=== PATIENT | female | born 1945 | race Caucasian/White ===

== ENCOUNTER 2021-06-10 16:22 | Emergency (ER) | payer MEDICARE ==
[~2021-06-10] VITALS: Ht 167.6 cm; Wt 67.7 kg
[~2021-06-10 16:22] MED LIST: AMIO200T61 PO; APIX5TAB3 PO; CEFD300C3 PO; FURO-149 PO; LISI5TAB22 PO; LOP25T PO; POTA-207 PO
[2021-06-10 17:39] VITALS: BP 111/67
== END 2021-06-11 02:51 | disposition left against medical advice (07) ==
LOC: ER 16:23
DX: Z53.21 Procedure and treatment not carried out due to patient leaving prior to being seen by health care provider (principal)
CPT/HCPCS: 71045

== ENCOUNTER 2021-07-17 19:16 | Inpatient (IN) | payer MEDICARE, OTHER ==
[~2021-07-17] VITALS: Ht 167.6 cm; Wt 77.5 kg
[~2021-07-17 19:16] MED LIST changes: -AMIO200T61 PO; +AMIO200T67 PO; -CEFD300C3 PO; -FURO-149 PO; +FURO40TA4 PO; +LISI2.5T14 PO; -LISI5TAB22 PO; -POTA-207 PO
[2021-07-17 20:20] LABS: BASOPHILS # (AUTO) 0.1 X10'3 (0-0.2); BASOPHILS % (AUTO) 0.2 % (0-1); EOSINOPHILS % (AUTO) 0.2 % (0-6); HEMATOCRIT 26.2 % (35.0-45.0); HEMOGLOBIN 8.3 g/dl (12.0-16.0); LYMPHOCYTES # (AUTO) 1.3 X10'3 (1.1-4.8); LYMPHOCYTES % (AUTO) 4.4 % (21-51); MEAN CORPUSCULAR HEMOGLOBIN 24.5 PG (27.0-31.0); MEAN CORPUSCULAR HGB CONC 31.5 g/dL (33.0-36.5); MEAN CORPUSCULAR VOLUME 77.7 FL (78-98); MEAN PLATELET VOLUME 6.8 FL (7.4-10.4); MONOCYTES # (AUTO) 1.6 X10'3 (0-0.9); MONOCYTES % (AUTO) 5.4 % (2-12); NEUTROPHILS # (AUTO) 26.1 X10'3 (1.8-7.7); NEUTROPHILS % (AUTO) 89.8 % (42-75); PLATELET COUNT 331 X10'3 (140-440); RED BLOOD COUNT 3.37 X10'6 (4.20-5.60); RED CELL DISTRIBUTION WIDTH 20.8 % (11.5-14.5)
[2021-07-17 20:26] LABS: WHITE BLOOD COUNT 29.1 X10'3 (4.5-11.0)
[2021-07-17 20:33] LABS: APTT 31 SECONDS (22-32)
[2021-07-17 20:57] LABS: ANISOCYTOSIS 3+; MICROCYTOSIS 1+; PLATELET ESTIMATE NORMAL; POLYCHROMASIA FEW; STOMATOCYTES FEW; TOTAL CELLS COUNTED 100
[2021-07-17 22:04] LABS: ALANINE AMINOTRANSFERASE 30 U/L (12-78); ALBUMIN 1.5 G/DL (3.4-5.0); ALBUMIN/GLOBULIN RATIO 0.3 (1.1-1.5); ALKALINE PHOSPHATASE 139 IU/L (46-116); ANION GAP 6 (8-16); ASPARTATE AMINO TRANSFERASE 26 U/L (10-37); BILIRUBIN,TOTAL 0.3 MG/DL (0.1-1.0); BLOOD UREA NITROGEN 33 MG/DL (7-18); BUN/CREATININE RATIO 26.6 (6.6-38.0); CHLORIDE 102 MMOL/L (99-107); CREATININE 1.24 MG/DL (0.40-0.90); GLUCOSE 122 MG/DL (70-104); POTASSIUM 4.2 MMOL/L (3.5-5.1); SODIUM 141 MMOL/L (135-145); TOTAL PROTEIN 7.1 G/DL (6.4-8.2); eGFR 42 ML/MIN
[2021-07-17] MEDS ORDERED: diltiazem 5mg/ml 5ml inj. IV ONE (23:15)
[2021-07-17] MEDS ORDERED: diltiazem-NS 100mg/100ml 100 ML IV PRN (23:15)
[2021-07-17 23:27] LABS: MAGNESIUM 2.3 MG/DL (1.5-2.4)
[2021-07-18] MEDS ORDERED: iohexol 300mg/ml 100ml inj. ONE (01:33)
[2021-07-18] MEDS ORDERED: CefTRIAXone/D5W-Rocephin 1gm 50 ML IV ONE (01:45)
[2021-07-18] MEDS ORDERED: ondansetron/PF 4mg/2ml inj IV PRN (02:55)
[2021-07-18] MEDS ORDERED: potassium Cl 20 mEq SR tablet PO PRN ×2 (02:55)
[2021-07-18] MEDS ORDERED: magnesium 2GM in 50ml NS 50 ML IV PRN (02:55)
[2021-07-18] MEDS ORDERED: magnesium 4gm in 100ml NS 100 ML IV PRN (02:55)
[2021-07-18] MEDS ORDERED: mag hydrox/Alum hydrox/simeth 30ml oral suspension PO PRN (02:55)
[2021-07-18] MEDS ORDERED: potassium CL 10mEq/100ml bag 100 ML IV PRN (02:55)
[2021-07-18] MEDS ORDERED: magnesium hydroxide 30ml (MOM) UD suspension PO PRN (02:55)
[2021-07-18] MEDS ORDERED: magnesium Cl slow-release 64mg tablet PO PRN (02:55)
[2021-07-18] MEDS ORDERED: AMIO200T27 PO (03:12)
[2021-07-18] MEDS ORDERED: LISI2.5T14 PO (03:12)
--- NOTE | 2021-07-18 04:00 | NUR ---
Attempted to call report to surgical. Waiting callback.
[2021-07-18] MEDS: acetaminophen 325mg tablet PO PRN ×2 (06:05→17:48)
[2021-07-18] MEDS: amiodarone 200mg tablet PO SCH ×2 (07:15→19:51)
[2021-07-18] MEDS: furosemide 40mg tablet PO SCH (07:15)
[2021-07-18] MEDS: metoprolol tartrate 25mg tablet PO SCH ×2 (07:15→19:53)
[2021-07-18] MEDS: lisinopril 2.5mg tablet PO SCH (07:15)
[2021-07-18] MEDS: docusate sod 100mg capsule PO SCH ×2 (07:15→19:51)
[2021-07-18] MEDS: K and/or MAG REPLACEMENT MC SCH ×2 (07:57→19:47)
--- NOTE | 2021-07-18 12:39 | NUR ---
PAGER ID: [phone] MESSAGE: Re: Cailin Finney. Room: 312. Pt's daughter would like an update when you get a chance. Whitney -Dr. Jenkins paged concerning update on Pt's diagnosis
[2021-07-18] MEDS ORDERED: ondansetron 4mg rapidly disintigrating tab PO PRN (14:05)
[2021-07-18 15:00] VITALS: BP 95/56
--- NOTE | 2021-07-18 15:40 | NUR ---
PAGER ID: [phone] MESSAGE: Re: MusellaCailin. room: 312. Pt complaining of chronic back pain. Can we order [place] 5 prn [id number]? -[facility] #[id number] -Dr. cutler paged concerning pain medication.
--- NOTE | 2021-07-18 16:07 | NUR ---
PAGER ID: [phone] MESSAGE: Re: Rene Finney. Room: 312. Pt's daughter would like to talk to you concerning her diagnosis. Whitney -[facility] #[id number] -Dr. Jenkins paged concerning update for Pt's daughter
[2021-07-18 18:00] VITALS: BP 81/56
--- NOTE | 2021-07-18 18:05 | NUR ---
Problems reprioritized. Patient report given, questions answered & plan of care reviewed with Asa URBINA.
[2021-07-18] MEDS: HYDROcodone/acetaminophen 5mg/325mg tablet PO PRN (19:52)
--- NOTE | 2021-07-18 21:52 | NUR ---
Pt is a 75 yo female, admitted 07/18/2021, day zero of admission, Full code, allergies to Ativan, No isolation , no restraints. 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 The patient has had good temporary relief from 2 thoracenteses. A diagnosis of malignancy has not been established, however, her CT now shows a new breast mass and a large R upper mediastinal mass. Currently, pt is in ACCE unit, Afebrile, C/o pain 7/10, called and received order for [place] 5 mg. Reassessment of pain is 0/10. Pt is awake alert oriented times 4, moves all extremities, follows all commands, stand-by asst with BSC. Pt on Bedside monitor. HR 110-130 AF, on PO Amiodarone, Held PO Lopressor due to Low BP of 90/54. Weak pulses, notable generalized edema BLUE. No IVF, R & L #20, f/p. RR 16, PO 96% O2 2 L NC, clear diminished, equal symmetrical, non labored. Hypoactive bowel sounds, soft non tender, rounded obese belly. Cardiac diet well tolerated. Voids freely via BSC with stand-by asst. skin intact, fragile, friable. Call light with in reach, pr instructed to call for asst when she wants to get up out of bed. Pt states she understands and agrees with assessment. Pt remains safe, continue to monitor. Upon admission pt stated she wanted to be a DNR, after further examination and discussion pt decided to change her code status to FULL CODE. Called and notified Dr Robles and he placed order to change code status to FULL CODE.
[2021-07-18 22:00] VITALS: BP 107/60
[2021-07-19] VITALS (7 sets, daily range): BP systolic 91–115; BP diastolic 49–63
[2021-07-19] MEDS: HYDROcodone/acetaminophen 5mg/325mg tablet PO PRN ×3 (01:49→20:35)
--- NOTE | 2021-07-19 06:53 | NUR ---
Patient in room MED 312. I have received report from CIARA BRICE and had the opportunity to ask questions and assume patient care.
[2021-07-19 06:58] LABS: BASOPHILS % (AUTO) 0.1 % (0-1); EOSINOPHILS # (AUTO) 0.1 X10'3 (0-0.9); EOSINOPHILS % (AUTO) 0.3 % (0-6); HEMATOCRIT 24.1 % (35.0-45.0); HEMOGLOBIN 7.6 g/dl (12.0-16.0); LYMPHOCYTES # (AUTO) 0.9 X10'3 (1.1-4.8); LYMPHOCYTES % (AUTO) 3.3 % (21-51); MEAN CORPUSCULAR HEMOGLOBIN 24.5 PG (27.0-31.0); MEAN CORPUSCULAR HGB CONC 31.6 g/dL (33.0-36.5); MEAN CORPUSCULAR VOLUME 77.6 FL (78-98); MEAN PLATELET VOLUME 6.8 FL (7.4-10.4); MONOCYTES # (AUTO) 1.2 X10'3 (0-0.9); MONOCYTES % (AUTO) 4.6 % (2-12); NEUTROPHILS # (AUTO) 24.7 X10'3 (1.8-7.7); NEUTROPHILS % (AUTO) 91.7 % (42-75); PLATELET COUNT 298 X10'3 (140-440); RED CELL DISTRIBUTION WIDTH 20.7 % (11.5-14.5)
[2021-07-19 07:11] LABS: WHITE BLOOD COUNT 26.9 X10'3 (4.5-11.0)
--- NOTE | 2021-07-19 07:47 | NUR ---
PAGE SENT PAGER ID: [phone] MESSAGE: 312, ADAN PARKER, CRITICAL LAB, WBC -26.9. WBC 07/18/21 - .1, THANK YOU, DAVIS [phone]
[2021-07-19 07:49] LABS: ALANINE AMINOTRANSFERASE 25 U/L (12-78); ALBUMIN 1.5 G/DL (3.4-5.0); ALBUMIN/GLOBULIN RATIO 0.3 (1.1-1.5); ALKALINE PHOSPHATASE 138 IU/L (46-116); ANION GAP 8 (8-16); ASPARTATE AMINO TRANSFERASE 19 U/L (10-37); BILIRUBIN,TOTAL 0.4 MG/DL (0.1-1.0); BLOOD UREA NITROGEN 35 MG/DL (7-18); BUN/CREATININE RATIO 30.7 (6.6-38.0); CALCIUM 8.7 MG/DL (8.5-10.1); CHLORIDE 100 MMOL/L (99-107); CREATININE 1.14 MG/DL (0.40-0.90); GLUCOSE 108 MG/DL (70-104); SODIUM 141 MMOL/L (135-145); TOTAL CARBON DIOXIDE 32.8 MMOL/L (24-32); eGFR 46 ML/MIN
[2021-07-19] MEDS: lisinopril 2.5mg tablet PO SCH (08:00)
[2021-07-19] MEDS: K and/or MAG REPLACEMENT MC SCH (08:00)
[2021-07-19] MEDS: metoprolol tartrate 25mg tablet PO SCH ×2 (08:00→20:34)
[2021-07-19] MEDS: amiodarone 200mg tablet PO SCH ×2 (08:04→20:34)
[2021-07-19] MEDS: furosemide 40mg tablet PO SCH (08:04)
[2021-07-19] MEDS: docusate sod 100mg capsule PO SCH ×2 (08:04→20:34)
[2021-07-19 08:29] LABS: ANISOCYTOSIS 3+; PLATELET ESTIMATE NORMAL; TOTAL CELLS COUNTED 100
[2021-07-19 08:30] LABS: MICROCYTOSIS 1+
--- NOTE | 2021-07-19 08:34 | NUR ---
Malnutrition consult: Pt admitted w/ recurrent pleural effusions, suspected to be of malignant in origin and w/ hx of CHF per EMR. Pt unsure of wt loss per MST though current chair scale wt is 6kg greater than previous bed scale wt on 06/26. Pt has had ~50% of first 2 meals. Appears WD/WN per ED note. Documented w/ BLE 2+ edema though could be r/t hx of CHF, takes furosemide at home per EMR. At this time pt does not meet minimum criteria for malnutrition, will continue to monitor. Addendum: 07/19/21 at [address] Amended: Links added.
--- NOTE | 2021-07-19 12:01 | NUR ---
PT'S LOPRESSOR AND ZESTRIL HELD D/T LOW BP. NOTIFIED.
--- NOTE | 2021-07-19 13:29 | NUR ---
312, ELENA ARELLANO, PT'S FAMILY WOULD APPRECIATE TALKING TO A INTELLIGENCE RESEARCH SPECIALIST CONCERNING DISCHARGING DIRECTLY TO [facility]. PT L[place]ES [place] THE [place] WITH . THANK YOU, DAVIS Adams [phone]
--- NOTE | 2021-07-19 18:23 | NUR ---
Problems reprioritized. Patient report given, questions answered & plan of care reviewed with CIARA DUARTE.
[2021-07-20] VITALS (10 sets, daily range): BP systolic 88–109; BP diastolic 46–76
--- NOTE | 2021-07-20 06:11 | NUR ---
Problems reprioritized. Patient report given, questions answered & plan of care reviewed with Karen URBINA.
--- NOTE | 2021-07-20 06:16 | NUR ---
Patient in room MED 312. I have received report from CIARA DUARTE, and had the opportunity to ask questions and assume patient care.
[2021-07-20 07:42] LABS: BASOPHILS % (AUTO) 0.2 % (0-1); EOSINOPHILS # (AUTO) 0.2 X10'3 (0-0.9); EOSINOPHILS % (AUTO) 0.6 % (0-6); HEMATOCRIT 23.9 % (35.0-45.0); HEMOGLOBIN 7.4 g/dl (12.0-16.0); LYMPHOCYTES # (AUTO) 1.1 X10'3 (1.1-4.8); MEAN CORPUSCULAR HEMOGLOBIN 24.2 PG (27.0-31.0); MEAN CORPUSCULAR HGB CONC 31.1 g/dL (33.0-36.5); MEAN CORPUSCULAR VOLUME 77.8 FL (78-98); MEAN PLATELET VOLUME 6.9 FL (7.4-10.4); MONOCYTES # (AUTO) 1.4 X10'3 (0-0.9); MONOCYTES % (AUTO) 5.2 % (2-12); NEUTROPHILS # (AUTO) 24.3 X10'3 (1.8-7.7); PLATELET COUNT 263 X10'3 (140-440); RED BLOOD COUNT 3.07 X10'6 (4.20-5.60); RED CELL DISTRIBUTION WIDTH 20.6 % (11.5-14.5)
--- NOTE | 2021-07-20 07:54 | NUR ---
REPORTED CRITICAL TO PRIMARY RN
[2021-07-20] MEDS: lisinopril 2.5mg tablet PO SCH (08:00)
[2021-07-20] MEDS: metoprolol tartrate 25mg tablet PO SCH ×2 (08:00→20:00)
[2021-07-20] MEDS: furosemide 40mg tablet PO SCH (08:00)
[2021-07-20] MEDS: K and/or MAG REPLACEMENT MC SCH ×2 (08:00→20:00)
[2021-07-20 08:04] LABS: ALANINE AMINOTRANSFERASE 22 U/L (12-78); ALBUMIN 1.4 G/DL (3.4-5.0); ALBUMIN/GLOBULIN RATIO 0.3 (1.1-1.5); ALKALINE PHOSPHATASE 140 IU/L (46-116); ANION GAP 9 (8-16); ASPARTATE AMINO TRANSFERASE 19 U/L (10-37); BILIRUBIN,TOTAL 0.3 MG/DL (0.1-1.0); BLOOD UREA NITROGEN 41 MG/DL (7-18); BUN/CREATININE RATIO 39.4 (6.6-38.0); CALCIUM 8.8 MG/DL (8.5-10.1); CHLORIDE 98 MMOL/L (99-107); CREATININE 1.04 MG/DL (0.40-0.90); GLUCOSE 97 MG/DL (70-104); POTASSIUM 4.2 MMOL/L (3.5-5.1); SODIUM 138 MMOL/L (135-145); TOTAL CARBON DIOXIDE 31.5 MMOL/L (24-32); TOTAL PROTEIN 5.8 G/DL (6.4-8.2); eGFR 52 ML/MIN
[2021-07-20] MEDS: amiodarone 200mg tablet PO SCH ×2 (08:12→20:22)
[2021-07-20] MEDS: docusate sod 100mg capsule PO SCH ×2 (08:12→20:22)
--- NOTE | 2021-07-20 08:19 | NUR ---
PAGE SENT TO TO NOTIFY OF MEDS HELD - LISIX 40 MG, LOPRESSOR 25 MG, AND ZESTRIL 2.5 MG , D/T LOW BP - 92/55, HR 111. ALSO NOTIFIED OF CRITICAL LAB - WBC 27.
[2021-07-20 09:29] LABS: TOTAL CELLS COUNTED 100
[2021-07-20 09:30] LABS: ANISOCYTOSIS 3+; LARGE PLATELETS FEW; MICROCYTOSIS 1+; PLATELET ESTIMATE NORMAL
[2021-07-20] MEDS ORDERED: fentaNYL/PF 50MCG/1 ML 2ML syringe ONE (13:41)
[2021-07-20] MEDS: HYDROcodone/acetaminophen 5mg/325mg tablet PO PRN ×2 (14:44→20:22)
--- NOTE | 2021-07-20 14:57 | NUR ---
PAGE SENT PAGER ID: [phone] MESSAGE: 312, ELENA ARELLANO PT NEEDS TELE ORDER. THANK YOU. DAVIS Adams [phone]
--- NOTE | 2021-07-20 18:33 | NUR ---
Problems reprioritized. Patient report given, questions answered & plan of care reviewed with CIARA DUARTE.
[2021-07-21 02:00] VITALS: BP 95/56
[2021-07-21] MEDS: HYDROcodone/acetaminophen 5mg/325mg tablet PO PRN ×2 (04:50→19:14)
[2021-07-21 06:00] VITALS: BP 96/61
--- NOTE | 2021-07-21 06:28 | NUR ---
Problems reprioritized. Patient report given, questions answered & plan of care reviewed with PATSY URBINA.
[2021-07-21 07:04] LABS: BASOPHILS % (AUTO) 0.1 % (0-1); EOSINOPHILS # (AUTO) 0.1 X10'3 (0-0.9); EOSINOPHILS % (AUTO) 0.2 % (0-6); HEMATOCRIT 24.2 % (35.0-45.0); HEMOGLOBIN 7.5 g/dl (12.0-16.0); LYMPHOCYTES # (AUTO) 0.8 X10'3 (1.1-4.8); LYMPHOCYTES % (AUTO) 2.5 % (21-51); MEAN CORPUSCULAR HEMOGLOBIN 24.2 PG (27.0-31.0); MEAN CORPUSCULAR HGB CONC 31.1 g/dL (33.0-36.5); MEAN CORPUSCULAR VOLUME 77.9 FL (78-98); MEAN PLATELET VOLUME 6.8 FL (7.4-10.4); MONOCYTES # (AUTO) 1.7 X10'3 (0-0.9); MONOCYTES % (AUTO) 5.4 % (2-12); NEUTROPHILS # (AUTO) 28.3 X10'3 (1.8-7.7); NEUTROPHILS % (AUTO) 91.8 % (42-75); PLATELET COUNT 252 X10'3 (140-440); RED BLOOD COUNT 3.11 X10'6 (4.20-5.60); RED CELL DISTRIBUTION WIDTH 20.4 % (11.5-14.5)
[2021-07-21 07:22] LABS: WHITE BLOOD COUNT 30.9 X10'3 (4.5-11.0)
[2021-07-21 07:30] LABS: ALANINE AMINOTRANSFERASE 20 U/L (12-78); ALBUMIN 1.5 G/DL (3.4-5.0); ALBUMIN/GLOBULIN RATIO 0.3 (1.1-1.5); ALKALINE PHOSPHATASE 138 IU/L (46-116); ANION GAP 7 (8-16); ASPARTATE AMINO TRANSFERASE 20 U/L (10-37); BILIRUBIN,TOTAL 0.3 MG/DL (0.1-1.0); BLOOD UREA NITROGEN 38 MG/DL (7-18); BUN/CREATININE RATIO 38.8 (6.6-38.0); CALCIUM 9.1 MG/DL (8.5-10.1); CHLORIDE 98 MMOL/L (99-107); CREATININE 0.98 MG/DL (0.40-0.90); GLUCOSE 129 MG/DL (70-104); POTASSIUM 4.5 MMOL/L (3.5-5.1); SODIUM 137 MMOL/L (135-145); TOTAL CARBON DIOXIDE 32.5 MMOL/L (24-32); TOTAL PROTEIN 5.9 G/DL (6.4-8.2); eGFR 55 ML/MIN
[2021-07-21] MEDS: lisinopril 2.5mg tablet PO SCH (08:00)
[2021-07-21] MEDS: K and/or MAG REPLACEMENT MC SCH ×2 (08:00→19:14)
[2021-07-21 09:11] LABS: ANISOCYTOSIS 3+; MICROCYTOSIS 1+; PLATELET ESTIMATE NORMAL; TOTAL CELLS COUNTED 100
[2021-07-21] MEDS: docusate sod 100mg capsule PO SCH ×2 (09:41→19:14)
[2021-07-21] MEDS: furosemide 40mg tablet PO SCH (09:41)
[2021-07-21] MEDS: amiodarone 200mg tablet PO SCH ×2 (09:41→19:14)
[2021-07-21] MEDS: metoprolol tartrate 25mg tablet PO SCH ×2 (09:41→20:00)
[2021-07-21 11:00] VITALS: BP 92/62
--- NOTE | 2021-07-21 14:55 | NUR ---
Dr Jenkins called to have order planner contactedGail with case management aware and will call Obi Springer RN aware
[2021-07-21 15:00] VITALS: BP 96/59
[2021-07-21 20:00] VITALS: BP 97/51
[2021-07-22] VITALS (8 sets, daily range): BP systolic 90–103; BP diastolic 47–57
[2021-07-22] MEDS: HYDROcodone/acetaminophen 5mg/325mg tablet PO PRN ×3 (01:08→19:22)
[2021-07-22 06:22] LABS: BASOPHILS % (AUTO) 0.1 % (0-1); EOSINOPHILS % (AUTO) 0.1 % (0-6); HEMATOCRIT 23.5 % (35.0-45.0); HEMOGLOBIN 7.3 g/dl (12.0-16.0); LYMPHOCYTES # (AUTO) 1.1 X10'3 (1.1-4.8); LYMPHOCYTES % (AUTO) 3.2 % (21-51); MEAN CORPUSCULAR HEMOGLOBIN 24.2 PG (27.0-31.0); MEAN CORPUSCULAR VOLUME 78.1 FL (78-98); MONOCYTES # (AUTO) 1.9 X10'3 (0-0.9); MONOCYTES % (AUTO) 5.5 % (2-12); NEUTROPHILS # (AUTO) 31.1 X10'3 (1.8-7.7); NEUTROPHILS % (AUTO) 91.1 % (42-75); PLATELET COUNT 251 X10'3 (140-440); RED BLOOD COUNT 3.02 X10'6 (4.20-5.60); RED CELL DISTRIBUTION WIDTH 20.8 % (11.5-14.5)
--- NOTE | 2021-07-22 06:37 | NUR ---
Problems reprioritized. Patient report given, questions answered & plan of care reviewed with Ting URBINA.
[2021-07-22 06:41] LABS: WHITE BLOOD COUNT 34.2 X10'3 (4.5-11.0)
[2021-07-22 06:52] LABS: TOTAL CELLS COUNTED 100
[2021-07-22 06:53] LABS: ANISOCYTOSIS 3+; MICROCYTOSIS 1+; PLATELET ESTIMATE NORMAL
[2021-07-22 06:56] LABS: ALANINE AMINOTRANSFERASE 22 U/L (12-78); ALBUMIN 1.5 G/DL (3.4-5.0); ALBUMIN/GLOBULIN RATIO 0.3 (1.1-1.5); ALKALINE PHOSPHATASE 141 IU/L (46-116); ANION GAP 6 (8-16); ASPARTATE AMINO TRANSFERASE 23 U/L (10-37); BILIRUBIN,TOTAL 0.3 MG/DL (0.1-1.0); BLOOD UREA NITROGEN 35 MG/DL (7-18); BUN/CREATININE RATIO 39.8 (6.6-38.0); CALCIUM 8.8 MG/DL (8.5-10.1); CHLORIDE 96 MMOL/L (99-107); CREATININE 0.88 MG/DL (0.40-0.90); GLUCOSE 125 MG/DL (70-104); POTASSIUM 4.4 MMOL/L (3.5-5.1); SODIUM 135 MMOL/L (135-145); TOTAL CARBON DIOXIDE 32.6 MMOL/L (24-32); TOTAL PROTEIN 5.9 G/DL (6.4-8.2); eGFR 63 ML/MIN
--- NOTE | 2021-07-22 07:37 | NUR ---
MD Desouza notified of critical WBC count of 34.2 at this time
[2021-07-22] MEDS: K and/or MAG REPLACEMENT MC SCH ×2 (07:46→19:22)
[2021-07-22] MEDS: docusate sod 100mg capsule PO SCH ×2 (08:15→19:20)
[2021-07-22] MEDS: lisinopril 2.5mg tablet PO SCH (08:15)
[2021-07-22] MEDS: amiodarone 200mg tablet PO SCH ×2 (08:15→19:21)
[2021-07-22] MEDS: furosemide 40mg tablet PO SCH (08:15)
[2021-07-22] MEDS: metoprolol tartrate 25mg tablet PO SCH ×2 (08:16→19:20)
[2021-07-22] MEDS: CefTRIAXone/D5W-Rocephin 1gm 50 ML IV SCH (11:42)
--- NOTE | 2021-07-22 18:37 | NUR ---
Patient in room MED 312. I have received report from Ting URBINA and had the opportunity to ask questions and assume patient care.
[2021-07-23] VITALS (7 sets, daily range): BP systolic 83–109; BP diastolic 49–65
[2021-07-23 03:29] LABS: OCCULT BLOOD STOOL NEGATIVE (Neg)
[2021-07-23 04:33] LABS: CLARITY,URINE CLEAR (Clear); COLOR,URINE YELLOW (Yellow); GLUCOSE, URINE NEGATIVE (Neg); KETONES,URINE NEGATIVE (Neg); LEUKOCYTE ESTERASE ,URINE NEGATIVE (Neg); NITRITES, URINE NEGATIVE (Neg); OCCULT BLOOD,URINE NEGATIVE (Neg); PROTEIN,URINE NEGATIVE (Neg); UROBILINOGEN,URINE 0.2 E.U/dL (0.2-1.0)
[2021-07-23 04:40] LABS: UA COLLECTION TYPE URINAL
[2021-07-23 05:57] LABS: BASOPHILS % (AUTO) 0.1 % (0-1); EOSINOPHILS % (AUTO) 0.1 % (0-6); HEMATOCRIT 23.4 % (35.0-45.0); HEMOGLOBIN 7.3 g/dl (12.0-16.0); LYMPHOCYTES % (AUTO) 2.6 % (21-51); MEAN CORPUSCULAR HEMOGLOBIN 24.1 PG (27.0-31.0); MEAN CORPUSCULAR HGB CONC 31.1 g/dL (33.0-36.5); MEAN CORPUSCULAR VOLUME 77.7 FL (78-98); MEAN PLATELET VOLUME 7.2 FL (7.4-10.4); MONOCYTES # (AUTO) 1.9 X10'3 (0-0.9); MONOCYTES % (AUTO) 4.9 % (2-12); NEUTROPHILS # (AUTO) 36.4 X10'3 (1.8-7.7); NEUTROPHILS % (AUTO) 92.3 % (42-75); PLATELET COUNT 281 X10'3 (140-440); RED BLOOD COUNT 3.02 X10'6 (4.20-5.60); RED CELL DISTRIBUTION WIDTH 20.5 % (11.5-14.5)
[2021-07-23 06:05] LABS: WHITE BLOOD COUNT 39.5 X10'3 (4.5-11.0)
--- NOTE | 2021-07-23 06:36 | NUR ---
Problems reprioritized. Patient report given, questions answered & plan of care reviewed with Eloy URBINA.
[2021-07-23 07:07] LABS: ALANINE AMINOTRANSFERASE 21 U/L (12-78); ALBUMIN 1.3 G/DL (3.4-5.0); ALBUMIN/GLOBULIN RATIO 0.2 (1.1-1.5); ALKALINE PHOSPHATASE 134 IU/L (46-116); ANION GAP 2 (8-16); ASPARTATE AMINO TRANSFERASE 21 U/L (10-37); BILIRUBIN,TOTAL 0.3 MG/DL (0.1-1.0); BLOOD UREA NITROGEN 39 MG/DL (7-18); BUN/CREATININE RATIO 42.9 (6.6-38.0); CALCIUM 9.7 MG/DL (8.5-10.1); CHLORIDE 93 MMOL/L (99-107); CREATININE 0.91 MG/DL (0.40-0.90); GLUCOSE 114 MG/DL (70-104); POTASSIUM 4.5 MMOL/L (3.5-5.1); SODIUM 130 MMOL/L (135-145); TOTAL CARBON DIOXIDE 34.6 MMOL/L (24-32); TOTAL PROTEIN 6.9 G/DL (6.4-8.2); eGFR 60 ML/MIN
[2021-07-23 07:09] LABS: FERRITIN 3770 NG/ML (8-252)
[2021-07-23 07:18] LABS: ANISOCYTOSIS 3+; MICROCYTOSIS 1+; PLATELET ESTIMATE NORMAL; TOTAL CELLS COUNTED 100
[2021-07-23 07:19] LABS: LARGE PLATELETS FEW
[2021-07-23 07:40] LABS: IRON 12 UG/DL (49-151)
[2021-07-23 07:41] LABS: % IRON SATURATION 9 % (11-46); TOTAL IRON BINDING CAPACITY 132 UG/DL (259-388)
[2021-07-23] MEDS: metoprolol tartrate 25mg tablet PO SCH ×2 (08:00→21:28)
[2021-07-23] MEDS: lisinopril 2.5mg tablet PO SCH (08:00)
[2021-07-23] MEDS: K and/or MAG REPLACEMENT MC SCH ×2 (08:00→20:00)
[2021-07-23] MEDS: furosemide 40mg tablet PO SCH (08:35)
[2021-07-23] MEDS: CefTRIAXone/D5W-Rocephin 1gm 50 ML IV SCH (08:35)
[2021-07-23] MEDS: docusate sod 100mg capsule PO SCH ×2 (08:35→21:27)
[2021-07-23] MEDS: amiodarone 200mg tablet PO SCH ×2 (08:35→21:28)
[2021-07-23 11:39] LABS: BFSOURCE RIGHT PLEURAL FLD; PLEURAL FLUID PH 7.496 (7.63-7.65)
[2021-07-23 12:03] LABS: GLUCOSE,BODY FLUID 138 MG/DL; LDH,BODY FLUID 134 U/L
[2021-07-23 12:27] LABS: BFAPPEAR HAZY
[2021-07-23 12:28] LABS: BF MESOTHELIAL CELLS MODERATE; BF RBC COUNT 1710 /CU MM; BF WBC COUNT 470 /CU MM (0-1000); BFCOLOR YELLOW; BFVOLUME 62 ML; LYMPHOCYTES,BODY FLUID 77 %; MONOCYTES,BODY FLUID 5 %; NEUTROPHILS,BODY FLUID 18 %
[2021-07-23] MEDS: HYDROcodone/acetaminophen 5mg/325mg tablet PO PRN ×3 (13:29→20:52)
--- NOTE | 2021-07-23 14:34 | NUR ---
Initial: Pt admit dx mediastinal mass, pleural effusion, CHF and CAD per EMR. Pt currently on heart healthy diet w/ avg PO intake 40% meals and meeting approximately 58% energy needs and 56% protein needs. Possibly pending discharge today s/p thoracentesis per MD note. Recommend smoothies TIDWM to help meet nutrient needs, dietary notified. Pt s/p R thoracentesis 60mL removed 07/23, and currently on 4L HFNC per EMR. LBM 07/18 vs 07/23 per documentation, receiving routine colace. Will continue to follow closely. Recommendations: 1. Continue heart healthy diet; liberalize to regular if PO does not improve and MD approves; encourage PO 2. Smoothies TIDWM 3. Routine bowel care 4. Scaled wt this admit, weekly scaled wts thereafter Addendum: 07/23/21 at [address] Amended: Links added. Addendum: 07/23/21 at [address] JOAO has reviewed and approves of above note.
--- NOTE | 2021-07-23 18:44 | NUR ---
Patient in room MED 312. I have received report from BJ URBINA and had the opportunity to ask questions and assume patient care.
[2021-07-24 06:00] VITALS: BP 102/72
--- NOTE | 2021-07-24 06:14 | NUR ---
Problems reprioritized. Patient report given, questions answered & plan of care reviewed with GE URBINA.
[2021-07-24] MEDS: K and/or MAG REPLACEMENT MC SCH ×2 (06:51→19:17)
[2021-07-24] MEDS: lisinopril 2.5mg tablet PO SCH (08:00)
[2021-07-24] MEDS: metoprolol tartrate 25mg tablet PO SCH ×2 (08:00→19:15)
[2021-07-24] MEDS: furosemide 40mg tablet PO SCH (08:00)
[2021-07-24] MEDS: docusate sod 100mg capsule PO SCH ×2 (08:01→19:17)
[2021-07-24] MEDS: amiodarone 200mg tablet PO SCH ×2 (08:01→19:17)
[2021-07-24] MEDS: CefTRIAXone/D5W-Rocephin 1gm 50 ML IV SCH (08:01)
[2021-07-24 09:13] LABS: BASOPHILS % (AUTO) 0 % (0-1); EOSINOPHILS # (AUTO) 0.1 X10'3 (0-0.9); EOSINOPHILS % (AUTO) 0.1 % (0-6); HEMATOCRIT 23.8 % (35.0-45.0); HEMOGLOBIN 7.3 g/dl (12.0-16.0); LYMPHOCYTES % (AUTO) 2.1 % (21-51); MEAN CORPUSCULAR HEMOGLOBIN 23.7 PG (27.0-31.0); MEAN CORPUSCULAR HGB CONC 30.7 g/dL (33.0-36.5); MEAN PLATELET VOLUME 6.8 FL (7.4-10.4); MONOCYTES # (AUTO) 1.8 X10'3 (0-0.9); MONOCYTES % (AUTO) 3.6 % (2-12); NEUTROPHILS % (AUTO) 94.2 % (42-75); PLATELET COUNT 307 X10'3 (140-440); RED BLOOD COUNT 3.09 X10'6 (4.20-5.60); RED CELL DISTRIBUTION WIDTH 20.5 % (11.5-14.5)
[2021-07-24 09:16] LABS: WHITE BLOOD COUNT 48.8 X10'3 (4.5-11.0)
[2021-07-24] MEDS: HYDROcodone/acetaminophen 5mg/325mg tablet PO PRN ×4 (09:47→23:06)
[2021-07-24 10:16] LABS: ANISOCYTOSIS 3+; MICROCYTOSIS 1+; PLATELET ESTIMATE NORMAL; TOTAL CELLS COUNTED 100
[2021-07-24 10:17] LABS: HYPOCHROMASIA 1+
[2021-07-24 11:00] VITALS: BP 103/62
[2021-07-24 12:17] LABS: ALANINE AMINOTRANSFERASE 16 U/L (12-78); ALKALINE PHOSPHATASE 141 IU/L (46-116); ANION GAP 6 (8-16); ASPARTATE AMINO TRANSFERASE 21 U/L (10-37); BILIRUBIN,TOTAL 0.2 MG/DL (0.1-1.0); BLOOD UREA NITROGEN 36 MG/DL (7-18); BUN/CREATININE RATIO 40.9 (6.6-38.0); CALCIUM 9.5 MG/DL (8.5-10.1); CHLORIDE 92 MMOL/L (99-107); CREATININE 0.88 MG/DL (0.40-0.90); GLUCOSE 105 MG/DL (70-104); POTASSIUM 4.9 MMOL/L (3.5-5.1); SODIUM 129 MMOL/L (135-145); TOTAL CARBON DIOXIDE 31.3 MMOL/L (24-32); TOTAL PROTEIN 6.9 G/DL (6.4-8.2); eGFR 63 ML/MIN
[2021-07-24 12:43] LABS: ALBUMIN/GLOBULIN RATIO 0.2 (1.1-1.5)
[2021-07-24 15:00] VITALS: BP 100/63
[2021-07-24 18:00] VITALS: BP 96/63
[2021-07-24] MEDS ORDERED: diltiazem-NS 100mg/100ml 100 ML IV PRN (21:02)
[2021-07-24 22:00] VITALS: BP 85/60
[2021-07-24] MEDS ORDERED: HYDROcodone/acetaminophen 10/325mg tab PO ONE (22:50)
[2021-07-25 02:00] VITALS: BP 111/63
--- NOTE | 2021-07-25 03:00 | NUR ---
Pt is a 75 yo female, admitted 07/18/2021, day 7 of admission, Full code, allergies to Ativan, No isolation , no restraints. 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 The patient has had good temporary relief from 2 thoracenteses. A diagnosis of malignancy has not been established, however, her CT now shows a new breast mass and a large R upper mediastinal mass. Currently, pt is in ACCE unit, Afebrile, PATIENT NEED MAJOR PAIN MANAGEMENT, C/o pain 03/01, called and received order REPEAT [place] 5 mg ans also got an order for [place] 10. Pt responded to 2nd dose of [place] 5, Reassessment of pain ipt is sleeping, arousable. Pt is awake alert confused at times, moves all extremities, follows all commands. Pt on Bedside monitor. HR 140's AF, on started pt on Cardizem gtt. HR more under control, 98 AF BP 110/51. Weak pulses, notable generalized edema BLUE. No IVF, IV LAC #20. RR 16, PO 96% O2 2 L NC, clear diminished, equal symmetrical, non labored. Hypoactive bowel sounds, soft non tender, rounded obese belly. Cardiac diet not tolerated. Incontinent of urine Purewick in place. Skin intact, fragile, friable. Call light with in reach, pr instructed to call for asst when she wants to get up out of bed. Pt remains safe, continue to monitor.
[2021-07-25] MEDS: HYDROcodone/acetaminophen 5mg/325mg tablet PO PRN ×2 (04:23→12:08)
[2021-07-25 05:32] VITALS: BP_DIAS 64
[2021-07-25] MEDS: amiodarone 200mg tablet PO SCH (08:46)
[2021-07-25] MEDS: lisinopril 2.5mg tablet PO SCH (08:46)
[2021-07-25] MEDS: docusate sod 100mg capsule PO SCH (08:46)
[2021-07-25 08:47] VITALS: BP_SYST 113
[2021-07-25] MEDS: metoprolol tartrate 25mg tablet PO SCH (08:47)
--- NOTE | 2021-07-25 10:30 | NUR ---
Patient's daughter requested for MD to discharge her Mother so she can take her to [facility], notified
--- NOTE | 2021-07-25 12:25 | NUR ---
retuned called stated that patient has to sign the AMA form.casey saw operator Fernanda spoke with daughter AMA form signed. daughter left with Patient
== END 2021-07-25 12:20 | disposition left against medical advice (07) | DRG 871 ==
LOC: ER 19:17 → ED HOLD 07-18 02:57 → MED 3N 07-18 12:14
PROVIDERS: ADMIT Internal Medicine; ATTEND Internal Medicine
PROC: 0HBU3ZX Excision of Left Breast, Percutaneous Approach, Diagnostic (ICD-10-PCS; principal; 2021-07-20)
PROC: 0W993ZX Drainage of Right Pleural Cavity, Percutaneous Approach, Diagnostic (ICD-10-PCS; 2021-07-23)
DX: A41.9 Sepsis, unspecified organism (principal); I50.23 Acute on chronic systolic (congestive) heart failure; E43 Unspecified severe protein-calorie malnutrition; J18.8 Other pneumonia, unspecified organism; N17.9 Acute kidney failure, unspecified; J98.11 Atelectasis; C64.2 Malignant neoplasm of left kidney, except renal pelvis; J91.0 Malignant pleural effusion; I11.0 Hypertensive heart disease with heart failure; Z66 Do not resuscitate; D49.89 Neoplasm of unspecified behavior of other specified sites; Z53.29 Procedure and treatment not carried out because of patient's decision for other reasons; N63.22 Unspecified lump in the left breast, upper inner quadrant; I48.91 Unspecified atrial fibrillation; I95.9 Hypotension, unspecified; I25.10 Atherosclerotic heart disease of native coronary artery without angina pectoris; D64.9 Anemia, unspecified; Z68.27 Body mass index [BMI] 27.0-27.9, adult; Z79.01 Long term (current) use of anticoagulants; Z86.711 Personal history of pulmonary embolism; Z87.891 Personal history of nicotine dependence; Z88.8 Allergy status to other drugs, medicaments and biological substances; Z79.899 Other long term (current) drug therapy
CPT/HCPCS: 20206; 32555; 36415; 71045; 71250; 74018; 77012; 80053; 81003; 82272; 82607; 82728; 82945; 83540; 83550; 83605; 83615; 83735; 83880; 83986; 84132; 84145; 84157; 84484; 85007; 85025; 85610; 85730; 87040; 87070; 87081; 88108; 88173; 88305; 88341; 88342; 89051; 93005; 93970; 97110; 97116; 97162; 99291; G0378; J0696; J3010; J3490; Q9967